=== PATIENT | female | born 1965 | race Caucasian/White ===

== ENCOUNTER 2017-09-03 11:07 | Day surgery (SDC) | payer OTHER ==
--- NOTE | 2017-08-27 14:54 | HP ---
Admitting History and Physical - Primary Care Physician PCP: Evy Morton - Admission Chief Complaint: Left breast mass History of Present Illness: 52 year old postmenapausal female who has left breast mass upper inner quadrant which has been present for years. Now it has become purulent with drainage. mammogram in February 2017 showed possible right breast mass that effaced and Us was negative. History Source: Patient - Past Medical History Endocrine: Yes: Hypothyroidism - Past Surgical History Past Surgical History: Yes: Hysterectomy (2010 due to menorrhagia left breast excision of skin lesion ? dom cyst 2014) Home Medications - Allergies Allergies/Adverse Reactions: Allergies Allergy/AdvReac Type Severity Reaction Status Date / Time No Known Allergies Allergy Verified 08/27/17 14:54 - Home Medications Home Medications (free text): levothyroxine Family Disease History - Family Disease History Family History: Denies Physical Examination Constitutional: Yes: Well Nourished Breast(s): Yes: Other (dense symmetrical there is a healed scar in LUIQ with mild surrounding erythema and an underlying mass compatible with epidermal inclusion cyst . no adenopathy) Problem List - Problems (1) Left breast mass Code(s): N63.20 - UNSPECIFIED LUMP IN THE LEFT BREAST, UNSPECIFIED QUADRANT Assessment/Plan Left breast excisional biopsy
[2017-08-30 15:47] VITALS: BMI 22.8
[2017-09-03] MEDS ORDERED: BUPIVACAINE HCL 0.25% 125 MG/50 ML VIAL ONE (13:23)
[2017-09-03] MEDS ORDERED: LIDOCAINE HCL 1%, 10 MG/ML (20ML VIAL) ONE (13:23)
[2017-09-03] MEDS ORDERED: BUPIVACAINE HCL/PF 0.5% (5MG/ML) 10 ML VIAL ONE (13:23)
[2017-09-03] MEDS ORDERED: MIDAZOLAM HCL 2 MG/2 ML SINGLE DOSE VIAL ONE (13:29)
[2017-09-03] MEDS ORDERED: ONDANSETRON 4 MG/2 ML VIAL IVPUSH PRN (13:39)
[2017-09-03] MEDS ORDERED: KETOROLAC TROMETHAMINE 30 MG/1 ML VIAL IVPUSH PRN (13:39)
[2017-09-03] MEDS ORDERED: PROPOFOL 20 ML ONE ×2 (13:42)
[2017-09-03] MEDS ORDERED: DEXTROSE 5%-0.45% SALINE 1,000 ML IV SCH (13:45)
[2017-09-03] MEDS ORDERED: ONDANSETRON 4 MG/2 ML VIAL ONE (13:46)
[2017-09-03] MEDS ORDERED: ceFAZolin SODIUM 1 GM VIAL ONE (13:46)
[2017-09-03] MEDS ORDERED: DEXAMETHASONE SOD PHOSPHATE 4 MG/1 ML VIAL ONE (13:46)
[2017-09-03] MEDS ORDERED: LIDOCAINE HCL 1%, 10 MG/ML (20ML VIAL) INF ONE (13:58)
[2017-09-03] MEDS ORDERED: BUPIVACAINE HCL/PF (5 MG/ML) 30 ML VIAL IJ ONE ×2 (14:02)
[2017-09-03] MEDS ORDERED: oxyCODONE HCL 5 MG TABLET ONE (15:42)
[2017-09-03 16:42] VITALS: TEMP 97.5
[2017-09-03 16:51] VITALS: BP 122/71; PULSE 71
--- NOTE | 2017-09-04 08:22 | OP ---
DATE OF OPERATION: PREOPERATIVE DIAGNOSIS: Left breast mass. POSTOPERATIVE DIAGNOSIS: Left breast mass. PROCEDURE: Excision of left breast mass. SURGEON: Evy Morton MD MANAGER ECONOMIC: ANNETTE Dexter ANESTHESIA: Local with IV sedation. ANESTHESIOLOGIST: SPECIMEN: Left breast mass. INDICATION FOR PROCEDURE: The patient is a 52-year-old woman who is status post incision and drainage of an infected epidermal inclusion cyst in the left breast upper inner quadrant. Since that time, she has had occasional flare ups of inflammation in the area with purulent drainage. Physical examination showed a residual mass. Excision was recommended. She is going to the operating room for that procedure. DESCRIPTION OF PROCEDURE: The patient was identified in the holding area. Informed consent was obtained. The left breast was identified with a marker. She was taken to the operating room and placed on the operating room table in a supine position. She was sedated. The left breast was prepped and draped. Examination of the left breast showed a healed scar in the upper inner quadrant and a possible mass above the scar. The skin was infiltrated with 1% lidocaine. The previous scar was excised with a scalpel. Electrocautery was then used to remove the tissue underneath the scar. There was a mass at the superior portion of the specimen, which could represent a residual cyst or postsurgical changes. The specimen was placed in formalin and sent to Pathology. The wound was inspected, and no additional masses could be identified. Hemostasis was achieved with electrocautery. The wound was then infiltrated with 0.25% Marcaine. The wound was closed using interrupted sutures of 3-0 Vicryl for the dermis and a running subcuticular closure of 4-0 Monocryl for the skin. The wound was cleaned and dressed with a sterile gauze dressing. The patient was taken to the PACU in satisfactory condition. Silvio [id number] MTDD
--- NOTE | 2017-09-07 19:05 | PATH ---
Surgical Pathology Report Patient Name: DOROTHY JOSE Med. Rec. #: [id number] /Age/Gender: 1965 (Age: 52) / F Account: [id number] Location: [facility] Taken: 09/03/2017 Received: 09/03/2017 Reported: 09/07/2017 Physicians: Evy Morton M.D. Specimen(s) Received LEFT BREAST MASS Clinical History History of epidermal inclusion cyst excision with residual mass and drainage Final Diagnosis BREAST, LEFT, MASS, EXCISION: SKIN SHOWING SCAR, NON-SPECIFIC CHRONIC INFLAMMATION AND FOREIGN BODY GIANT CELL REACTION. Electronically Signed Brynn Laurent M.D. Gross Description Received in formalin labeled "left breast mass," is a 2.0 x 0.4 cm martin, elliptical, unoriented portion of skin excised to depth of 0.7 cm. The epidermal surface is grossly unremarkable. The specimen is inked green and serially sectioned. No definitive mass is identified. The specimen is entirely submitted in 2 cassettes. /09/06/2017 saudi09/06/2017
== END 2017-09-03 16:00 | disposition home or self-care (01) ==
LOC: FASU 11:07
PROVIDERS: ATTEND Surgery
PROC: 0HBU0ZX Excision of Left Breast, Open Approach, Diagnostic (ICD-10-PCS; principal; 2017-09-03 13:54)
DX: N63.22 Unspecified lump in the left breast, upper inner quadrant (principal); L90.5 Scar conditions and fibrosis of skin
CPT/HCPCS: 88307-TC